=== PATIENT | female | born 1990 | race Caucasian/White ===

== ENCOUNTER 2016-10-04 18:10 | Outpatient (CLI) | payer OTHER ==
[2017-02-03] MEDS ORDERED: FERROUS SULFAT325 MG PO (15:21)
[2017-02-03] MEDS ORDERED: NORCO 5-325 TA1 EACH PO (15:24)
== END 2016-10-04 20:10 | disposition home or self-care (01) ==
LOC: GENOP 18:10
DX: O99.89 Other specified diseases and conditions complicating pregnancy, childbirth and the puerperium (principal); M54.9 Dorsalgia, unspecified; R10.9 Unspecified abdominal pain; Z3A.20 20 weeks gestation of pregnancy
CPT/HCPCS: 81001; 87086; G0463

== ENCOUNTER 2016-10-13 12:21 | Outpatient (CLI) | payer OTHER ==
[2017-02-03] MEDS ORDERED: FERROUS SULFAT325 MG PO (15:21)
[2017-02-03] MEDS ORDERED: NORCO 5-325 TA1 EACH PO (15:24)
== END 2016-10-13 13:36 | disposition home or self-care (01) ==
LOC: GENOP 12:21
DX: O42.912 Preterm premature rupture of membranes, unspecified as to length of time between rupture and onset of labor, second trimester (principal); Z3A.21 21 weeks gestation of pregnancy
CPT/HCPCS: 81001; 83518; G0463